=== PATIENT | female | born 1990 | race Caucasian/White ===

== ENCOUNTER 2023-10-29 17:18 | Emergency (ER) | payer OTHER ==
[~2023-10-29] VITALS: Ht 170.2 cm; Wt 77.1 kg
[2023-10-29 17:28] VITALS: BP 127/86; PULSE 116; RESP 18; TEMP 98.1; O2SAT 99
[2023-10-29] MEDS: ACETAMINOPHEN EXTRA STRENGTH 500 MG TAB PO ONE (18:19)
[2023-10-29] MEDS ORDERED: IBUP-2213 PO (19:19)
== END 2023-10-29 20:03 | disposition home or self-care (01) ==
LOC: MED 17:18
DX: S93.492A Sprain of other ligament of left ankle, initial encounter (principal); Z79.899 Other long term (current) drug therapy; W18.30XA Fall on same level, unspecified, initial encounter; Y93.89 Activity, other specified; Y92.89 Other specified places as the place of occurrence of the external cause; Y99.8 Other external cause status
CPT/HCPCS: 73610; 99283